=== PATIENT | female | born 1980 | race Caucasian/White ===

== ENCOUNTER 2017-10-07 11:34 | Outpatient (CLI) | payer OTHER | END 2017-10-07 12:28 | disposition home or self-care (01) | LOC: NST 11:34 | DX: Z34.83 Encounter for supervision of other normal pregnancy, third trimester (principal) ==

== ENCOUNTER 2017-10-14 09:56 | Outpatient (CLI) | payer OTHER | END 2017-10-14 12:34 | disposition home or self-care, planned readmission (81) | LOC: NST 09:56 | DX: Z34.83 Encounter for supervision of other normal pregnancy, third trimester (principal) ==